=== PATIENT | male | born 1980 | race Caucasian/White ===

== ENCOUNTER 2017-04-08 22:09 | Emergency (ER) | payer OTHER ==
--- NOTE | 2017-04-08 23:25 | ED CLINICAL REPORT ---
Clinical Report - Physicians/Mid Levels [facility] [address] [place] [address] 04/08/2017 22:14 Patient: LISSA JACKSON Time Seen: 00:03 Apr 09 2017. Arrived- By private vehicle. Historian- patient. HISTORY OF PRESENT ILLNESS Chief Complaint: BACK PAIN. It is described as being in the area of the lower thoracic spine, upper lumbar spine, right side of the lower thoracic spine and right side of the upper lumbar spine and radiating to the left thigh. 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 Pain worsens with any movement or activity. and it is still present. No bowel dysfunction or sensory loss. Additional history - Patient reports lifting heavy objects at work about 5 days previously. Patient saw his primary care provider on the , was given muscle relaxers as well as anti-inflamotrin which have alleviated some pain, however pain worsening. Similar symptoms previously: None. REVIEW OF SYSTEMS The patient has had fever. No cough, difficulty breathing, vomiting, diarrhea or urinary frequency. No vaginal discharge. All systems otherwise negative, except as recorded above. SOCIAL HISTORY No alcohol use or drug use. ADDITIONAL NOTES The nursing notes have been reviewed. PHYSICAL EXAM Vital Signs: 04/08/2017 22:18 BP: 145/94. HR: 100. RR: 20. O2 saturation: 98%. Temp: 97.9 F. Pain level now: 8/10. Appearance: Alert. No acute distress. Neck: Neck nontender. Painless ROM. CVS: Normal heart rate and rhythm. Heart sounds normal. Respiratory: No respiratory distress. Breath sounds normal. Back: Soft tissue tenderness. Moderate muscle spasm present in the right mid and lower lumbar area. Neuro: Mood/affect normal. No sensory deficit. Straight leg raising: negative on the right and negative on the left. PROGRESS AND PROCEDURES Course of Care: There are no risks for spinal epidural abscess or hematoma as patient is without any risk factors such as IVDA or evidence of active infection, no midline tenderness to percussion. Hence I do not feel emergent imaging with an MRI is indicated. However I did discuss with the patient that if these symptoms develop, or if the pain does not resolve an MRI may need to be done outpatient, or in the ED if symptoms worsen acutely or new onset of the above mentioned symptoms develop. 04/08/2017 23:37 BP: 127/93. HR: 95. RR: 15. O2 saturation: 98%. Pain level now: 5/10. Patient is stable. Symptoms better. Patient/family counseled. Disposition: Discharged. Condition: good. CLINICAL IMPRESSION Muscle strain of the low back. INSTRUCTIONS Apply ice. Limit lifting. Prescription Medications: Hydrocodone/APAP 7.5mg / 325mg: take 1 orally every 6 hours as needed for pain. Dispense fifteen (15). No refill. Valium 5 mg: take 1 orally every 12 hours for 5 days as needed for muscle spasm. Dispense ten (10). No refill. Substitution is permissible. Follow-up: Follow up with your doctor in three days. Understanding of the discharge instructions verbalized by patient. (Electronically signed by Brunilda Woodward P.A.-C 04/09/2017 0:05)
--- NOTE | 2017-04-08 23:25 | ED CLINICAL REPORT ---
Clinical Report - Physicians/Mid Levels [facility] [address] [place] [address] 04/08/2017 22:14 Patient: LISSA JACKSON Time Seen: 00:03 Apr 09 2017. Arrived- By private vehicle. Historian- patient. HISTORY OF PRESENT ILLNESS Chief Complaint: BACK PAIN. It is described as being in the area of the lower thoracic spine, upper lumbar spine, right side of the lower thoracic spine and right side of the upper lumbar spine and radiating to the left thigh. 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 Pain worsens with any movement or activity. and it is still present. No bowel dysfunction or sensory loss. Additional history - Patient reports lifting heavy objects at work about 5 days previously. Patient saw his primary care provider on the , was given muscle relaxers as well as anti-inflamotrin which have alleviated some pain, however pain worsening. Similar symptoms previously: None. REVIEW OF SYSTEMS The patient has had fever. No cough, difficulty breathing, vomiting, diarrhea or urinary frequency. No vaginal discharge. All systems otherwise negative, except as recorded above. SOCIAL HISTORY No alcohol use or drug use. ADDITIONAL NOTES The nursing notes have been reviewed. PHYSICAL EXAM Vital Signs: 04/08/2017 22:18 BP: 145/94. HR: 100. RR: 20. O2 saturation: 98%. Temp: 97.9 F. Pain level now: 8/10. Appearance: Alert. No acute distress. Neck: Neck nontender. Painless ROM. CVS: Normal heart rate and rhythm. Heart sounds normal. Respiratory: No respiratory distress. Breath sounds normal. Back: Soft tissue tenderness. Moderate muscle spasm present in the right mid and lower lumbar area. Neuro: Mood/affect normal. No sensory deficit. Straight leg raising: negative on the right and negative on the left. PROGRESS AND PROCEDURES Course of Care: There are no risks for spinal epidural abscess or hematoma as patient is without any risk factors such as IVDA or evidence of active infection, no midline tenderness to percussion. Hence I do not feel emergent imaging with an MRI is indicated. However I did discuss with the patient that if these symptoms develop, or if the pain does not resolve an MRI may need to be done outpatient, or in the ED if symptoms worsen acutely or new onset of the above mentioned symptoms develop. 04/08/2017 23:37 BP: 127/93. HR: 95. RR: 15. O2 saturation: 98%. Pain level now: 5/10. Patient is stable. Symptoms better. Patient/family counseled. Disposition: Discharged. Condition: good. CLINICAL IMPRESSION Muscle strain of the low back. INSTRUCTIONS Apply ice. Limit lifting. Prescription Medications: Hydrocodone/APAP 7.5mg / 325mg: take 1 orally every 6 hours as needed for pain. Dispense fifteen (15). No refill. Valium 5 mg: take 1 orally every 12 hours for 5 days as needed for muscle spasm. Dispense ten (10). No refill. Substitution is permissible. Follow-up: Follow up with your doctor in three days. Understanding of the discharge instructions verbalized by patient. (Electronically signed by Brunilda Woodward P.A.-C 04/09/2017 0:05)
--- NOTE | 2017-04-08 23:26 | ED NURSING NOTES ---
Clinical Report - Nurses [facility] [address] [place] [address] 04/08/2017 22:14 Patient: LISSA JACKSON TRIAGE Triage time 22:21. Acuity: LEVEL 4. Chief Complaint: BACK PAIN. Alert. LOULOU COMA SCORE: [place] Coma Scale: 15- eyes open spontaneously (4); best verbal response- oriented x 4 (5); best motor response- obeys commands (6). --22:25 Heber Tinajero R.N. 22:18 04/08/17. BP: 145/94. HR: 100. RR: 20 (regular and unlabored). O2 saturation: 98% on room air. Temp: 97.9 F (oral). Pain level now: 07/06. --22:25 Heber Tinajero R.N. Weight: 104.3 kg. Height/Length: 69 inches Per Patient. BMI: 34. --22:23 Heber Tinajero R.N. Medications None. --22:18 Heber Tinajero R.N. Allergies Benadryl. --22:18 Heber Tinajero R.N. History Arrived by private vehicle. Historian: patient. Onset. (april 04, 2017). 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 SOCIAL HX: Never smoker. Occasional alcohol use. No drug use. ( denies HI/SI, states feeling safe in his relationships). ABUSE ASSESSMENT: No report of abuse. SELF HARM ASSESSMENT: A self harm assessment was performed. The patient answered "no" to the question "Do you have thoughts of harming or killing yourself?" and "Are you here because you tried to hurt yourself?". FALL RISK ASSESSMENT: Fall risk assessment completed. No fall risk identified. NUTRITIONAL RISK ASSESSMENT: The nutritional risk assessment revealed no deficiencies. FUNCTIONAL ASSESSMENT: Functional assessment: no impairments noted. LEARNING NEEDS ASSESSMENT: The learning needs assessment revealed no barriers. SKIN INTEGRITY ASSESSMENT: Skin integrity risk assessment completed. No skin integrity risk identified. --22:25 Heber Tinajero R.N. PROBLEMS: Asthma. Chiari malformation. --22:21 Heber Tinajero R.N. ADDITIONAL SURGERIES: chiari malformation - repair. Inguinal Hernia Repair. Shoulder Surgery. --22:21 Heber Tinajero R.N. Interventions ID band on patient. To treatment room. --22:25 Heber Tinajero R.N. PHYSICAL ASSESSMENT Ambulatory to room. GENERAL / NEURO / PSYCH: Alert. Oriented X 4. Appears in pain. RESPIRATORY: Chest nontender. Breath sounds within normal limits. CVS: Capillary refill less than 2 seconds. GI / : Abdomen soft and nontender. EXTREMITIES: Sensation intact in extremities. BACK: ( related to pain). Normal inspection of the neck and back. Limited ROM of the neck. Soft tissue tenderness. --22:25 Heber Tinajero R.N. NURSING PROGRESS NOTES Head of bed elevated. Reassurance given. Two patient identifiers checked. Call light placed in reach. Side rails up x 1. Bed placed in lowest position. Brakes of bed on. Patient ready for evaluation- chart flagged. Patient waiting for evaluation. --22:26 Heber Tinajero R.N. 23:04/08/2017 Valium (Diazepam) PO Tablets 5 mg given. Allergies verified, confirmed 5 rights and sedative warning given to the patient and patient's family. --23:05 Heber Tinajero R.N. 23:05 04/08/2017 Hydrocodone-APAP (Hydrocodone-Acetaminophen) PO 5/325 mg Tablets 1 tab given. Allergies verified, confirmed 5 rights and sedative warning given to the patient. --23:05 Heber Tinajero R.N. 23:34. The patient is calm and resting quietly. GENERAL / NEURO / PSYCH: Alert. Oriented X 4. RESPIRATORY: No respiratory distress. SKIN: Skin is warm and dry. Skin color within normal limits. --23:38 Ayden Sims R.N. DISPOSITION / DISCHARGE Departure time: 23:37. Condition at departure: stable. No learning barriers present. Discharge instructions provided and reviewed with the patient. Reviewed medication(s) side effects, precautions, dosing and course information. Prescription(s) given to the patient. Patient verbalized understanding. Written instructions provided in Welsh. The patient was discharged home and accompanied by detonator assembler. He left the Emergency Department ambulatory and via private vehicle. Integration Lead driving. FALL RISK ASSESSMENT: Fall risk assessment completed. No fall risk identified. --23:38 Ayden Sims R.N. 23:37 04/08/17. BP: 127/93. HR: 95. RR: 15. O2 saturation: 98% on room air. Pain level now: 04/05. --23:38 Ayden Sims R.N. Locked/Released at 04/08/2017 23:38 by Ayden Sims R.N.
--- NOTE | 2017-04-08 23:26 | ED ORDER SUMMARY ---
..... Patient: LISSA JACKSON OrderSheet [facility] VisitID: [id number] [address] [place] [address] 36y, M Registration Date/Time: 04/08/2017 ORDER SHEET Weight: 104.3 kg Allergies: Benadryl GENERAL ORDERS: MEDICATION ORDERS: Valium PO 5 mg (HIGH ALERT MEDICATION, NOW) (22:41 04/08/2017 Radha P.A.-C) (Ack 23:01 DDavis R.N.) (23:05 DDavis R.N.) Hydrocodone-APAP PO 5/325 mg (NOW, HIGH ALERT MEDICATION) (22:41 04/08/2017 Radha P.A.-C) (Ack 23:01 DDavis R.N.) (23:05 DDavis R.N.) IV FLUIDS: ORDER SHEET NOTES: [Electronically signed by Ayden Sims R.N. (23:38 04/08/2017)] [Electronically signed by Brunilda WoodwardA.-C (00:05 04/09/2017)] [Electronically locked/signed by Ayden Sims R.N. (23:38 04/08/2017)]
--- NOTE | 2017-04-08 23:26 | ED ORDER SUMMARY ---
..... Patient: LISSA JACKSON OrderSheet [facility] VisitID: [id number] [address] [place] [address] 36y, M Registration Date/Time: 04/08/2017 ORDER SHEET Weight: 104.3 kg Allergies: Benadryl GENERAL ORDERS: MEDICATION ORDERS: Valium PO 5 mg (HIGH ALERT MEDICATION, NOW) (22:41 04/08/2017 Radha P.A.-C) (Ack 23:01 DDavis R.N.) (23:05 DDavis R.N.) Hydrocodone-APAP PO 5/325 mg (NOW, HIGH ALERT MEDICATION) (22:41 04/08/2017 Radha P.A.-C) (Ack 23:01 DDavis R.N.) (23:05 DDavis R.N.) IV FLUIDS: ORDER SHEET NOTES: [Electronically signed by Ayden Sims R.N. (23:38 04/08/2017)] [Electronically signed by Brunilda WoodwardA.-C (00:05 04/09/2017)] [Electronically locked/signed by Ayden Sims R.N. (23:38 04/08/2017)]
--- NOTE | 2017-04-08 23:26 | ED NURSING NOTES ---
Clinical Report - Nurses [facility] [address] [place] [address] 04/08/2017 22:14 Patient: LISSA JACKSON TRIAGE Triage time 22:21. Acuity: LEVEL 4. Chief Complaint: BACK PAIN. Alert. LOULOU COMA SCORE: [place] Coma Scale: 15- eyes open spontaneously (4); best verbal response- oriented x 4 (5); best motor response- obeys commands (6). --22:25 Heber Tinajero R.N. 22:18 04/08/17. BP: 145/94. HR: 100. RR: 20 (regular and unlabored). O2 saturation: 98% on room air. Temp: 97.9 F (oral). Pain level now: 07/06. --22:25 Heber Tinajero R.N. Weight: 104.3 kg. Height/Length: 69 inches Per Patient. BMI: 34. --22:23 Heber Tinajero R.N. Medications None. --22:18 Heber Tinajero R.N. Allergies Benadryl. --22:18 Heber Tinajero R.N. History Arrived by private vehicle. Historian: patient. Onset. (april 04, 2017). 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 SOCIAL HX: Never smoker. Occasional alcohol use. No drug use. ( denies HI/SI, states feeling safe in his relationships). ABUSE ASSESSMENT: No report of abuse. SELF HARM ASSESSMENT: A self harm assessment was performed. The patient answered "no" to the question "Do you have thoughts of harming or killing yourself?" and "Are you here because you tried to hurt yourself?". FALL RISK ASSESSMENT: Fall risk assessment completed. No fall risk identified. NUTRITIONAL RISK ASSESSMENT: The nutritional risk assessment revealed no deficiencies. FUNCTIONAL ASSESSMENT: Functional assessment: no impairments noted. LEARNING NEEDS ASSESSMENT: The learning needs assessment revealed no barriers. SKIN INTEGRITY ASSESSMENT: Skin integrity risk assessment completed. No skin integrity risk identified. --22:25 Heber Tinajero R.N. PROBLEMS: Asthma. Chiari malformation. --22:21 Heber Tinajero R.N. ADDITIONAL SURGERIES: chiari malformation - repair. Inguinal Hernia Repair. Shoulder Surgery. --22:21 Heber Tinajero R.N. Interventions ID band on patient. To treatment room. --22:25 Heber Tinajero R.N. PHYSICAL ASSESSMENT Ambulatory to room. GENERAL / NEURO / PSYCH: Alert. Oriented X 4. Appears in pain. RESPIRATORY: Chest nontender. Breath sounds within normal limits. CVS: Capillary refill less than 2 seconds. GI / : Abdomen soft and nontender. EXTREMITIES: Sensation intact in extremities. BACK: ( related to pain). Normal inspection of the neck and back. Limited ROM of the neck. Soft tissue tenderness. --22:25 Heber Tinajero R.N. NURSING PROGRESS NOTES Head of bed elevated. Reassurance given. Two patient identifiers checked. Call light placed in reach. Side rails up x 1. Bed placed in lowest position. Brakes of bed on. Patient ready for evaluation- chart flagged. Patient waiting for evaluation. --22:26 Heber Tinajero R.N. 23:04/08/2017 Valium (Diazepam) PO Tablets 5 mg given. Allergies verified, confirmed 5 rights and sedative warning given to the patient and patient's family. --23:05 Heber Tinajero R.N. 23:05 04/08/2017 Hydrocodone-APAP (Hydrocodone-Acetaminophen) PO 5/325 mg Tablets 1 tab given. Allergies verified, confirmed 5 rights and sedative warning given to the patient. --23:05 Heber Tinajero R.N. 23:34. The patient is calm and resting quietly. GENERAL / NEURO / PSYCH: Alert. Oriented X 4. RESPIRATORY: No respiratory distress. SKIN: Skin is warm and dry. Skin color within normal limits. --23:38 Ayden Sims R.N. DISPOSITION / DISCHARGE Departure time: 23:37. Condition at departure: stable. No learning barriers present. Discharge instructions provided and reviewed with the patient. Reviewed medication(s) side effects, precautions, dosing and course information. Prescription(s) given to the patient. Patient verbalized understanding. Written instructions provided in Turkmen. The patient was discharged home and accompanied by regional service manager. He left the Emergency Department ambulatory and via private vehicle. Steam Frame Operator driving. FALL RISK ASSESSMENT: Fall risk assessment completed. No fall risk identified. --23:38 Ayden Sims R.N. 23:37 04/08/17. BP: 127/93. HR: 95. RR: 15. O2 saturation: 98% on room air. Pain level now: 04/05. --23:38 Ayden Sims R.N. Locked/Released at 04/08/2017 23:38 by Ayden Sims R.N.
--- NOTE | 2017-04-09 00:05 | ED MED RECONCILIATION SUMMARY ---
Patient: LISSA JACKSON Medication Reconciliation Report [facility] VisitID: [id number] [address] [place] [address] 36y, M Registration Date/Time: 04/08/2017 Weight: 104.3 kg Height/Length: 69 in. BMI: 34.0 ALLERGIES: Benadryl The patient's Home Medications are listed below: NONE. The source(s) of the original Home Medication information: Not obtained. The following Medications were given to the patient in the Emergency Department: Valium [PO] PO 5 mg, administered: 04/08/2017 11:05:00 PM Hydrocodone-APAP [PO] PO 1 tab, administered: 04/08/2017 11:05:00 PM The following Medications were prescribed to the patient: Hydrocodone/APAP 7.5mg / 325mg: take 1 orally every 6 hours as needed for pain. Dispense fifteen (15). No refill. -- Brunilda Woodward P.ADelvis-Joseph Valium 5 mg: take 1 orally every 12 hours for 5 days as needed for muscle spasm. Dispense ten (10). No refill. Substitution is permissible. -- Brunilda Woodward, P.ADelvis-C
--- NOTE | 2017-04-09 00:05 | ED MAR SUMMARY ---
..... Medication Administration Record [facility] [address] [place] [address] Patient: LISSA JACKSON Visit ID: [id number] 36y, M Weight: 104.3 kg Height/Length: 69 in BMI: 34 ALLERGIES: Benadryl Given 23:04/08/2017 Heber Tinajero R.N. Medication Administered: VALIUM [PO] (DIAZEPAM), Dose: 5 mg Tablets PO. Medication Ordered: Valium PO 5 mg (HIGH ALERT MEDICATION, NOW). Given 23:04/08/2017 Heber Tinajero R.N. Medication Administered: HYDROCODONE-APAP [PO] (HYDROCODONE-ACETAMINOPHEN), Dose: 1 tab 5/325 mg Tablets PO. Medication Ordered: Hydrocodone-APAP PO 5/325 mg (NOW, HIGH ALERT MEDICATION).
--- NOTE | 2017-04-09 00:05 | ED MAR SUMMARY ---
..... Medication Administration Record [facility] [address] [place] [address] Patient: LISSA JACKSON Visit ID: [id number] 36y, M Weight: 104.3 kg Height/Length: 69 in BMI: 34 ALLERGIES: Benadryl Given 23:04/08/2017 Heber Tinajero R.N. Medication Administered: VALIUM [PO] (DIAZEPAM), Dose: 5 mg Tablets PO. Medication Ordered: Valium PO 5 mg (HIGH ALERT MEDICATION, NOW). Given 23:04/08/2017 Heber Tinajero R.N. Medication Administered: HYDROCODONE-APAP [PO] (HYDROCODONE-ACETAMINOPHEN), Dose: 1 tab 5/325 mg Tablets PO. Medication Ordered: Hydrocodone-APAP PO 5/325 mg (NOW, HIGH ALERT MEDICATION).
--- NOTE | 2017-04-09 00:05 | ED DISCHARGE INSTRUCTIONS ---
Patient: LISSA JACKSON General Instructions [facility] VisitID: [id number] [place] [address] 36y, M Registration Date/Time: 04/08/2017 Muscle strain of the low back. INSTRUCTIONS Apply ice. Limit lifting. Prescription Medications: Hydrocodone/APAP 7.5mg / 325mg: take 1 orally every 6 hours as needed for pain. Dispense fifteen (15). No refill. Valium 5 mg: take 1 orally every 12 hours for 5 days as needed for muscle spasm. Dispense ten (10). No refill. Substitution is permissible. Follow-up: Follow up with your doctor in three days. Understanding of the discharge instructions verbalized by patient. ADDITIONAL INFORMATION Back Pain [Acute Or Chronic] Back pain is usually caused by an injury to the muscles or ligaments of the spine. Sometimes the disks that separate each bone in the spine may bulge and cause pain by pressing on a nearby nerve. Back pain may also appear after a sudden twisting/bending force (such as in a car accident), after a simple awkward movement, or lifting something heavy with poor body positioning. In either case, muscle spasm is often present and adds to the pain. Acute back pain usually gets better in one to two weeks. Back pain related to disk disease, arthritis in the spinal joints or spinal stenosis (narrowing of the spinal canal) can become chronic and last for months or years. Unless you had a physical injury (for example, a car accident or fall) X-rays are usually not ordered for the initial evaluation of back pain. If pain continues and does not respond to medical treatment, x-rays and other tests may be performed at a later time. Home Care: You may need to stay in bed the first few days. But, as soon as possible, begin sitting or walking to avoid problems with prolonged bed rest (muscle weakness, worsening back stiffness and pain, blood clots in the legs). When in bed, try to find a position of comfort. A firm mattress is best. Try lying flat on your back with pillows under your knees. You can also try lying on your side with your knees bent up towards your chest and a pillow between your knees. Avoid prolonged sitting. This puts more stress on the lower back than standing or walking. During the first two days after injury, apply an ICE PACK to the painful area for 20 minutes every 2-4 hours. This will reduce swelling and pain. HEAT (hot shower, hot bath or heating pad) works well for muscle spasm. You can start with ice, then switch to heat after two days. Some patients feel best alternating ice and heat treatments. Use the one method that feels the best to you. You may use acetaminophen (Tylenol) or ibuprofen (Motrin, Advil) to control pain, unless another pain medicine was prescribed. [NOTE: If you have chronic liver or kidney disease or ever had a stomach ulcer or GI bleeding, talk with your doctor before using these medicines.] Be aware of safe lifting methods and do not lift anything over 15 pounds until all the pain is gone. Follow Up with your doctor or this facility if your symptoms do not start to improve after one week. Physical therapy may be needed. [NOTE: If X-rays were taken, they will be reviewed by a radiologist. You will be notified of any new findings that may affect your care.] Get Prompt Medical Attention if any of the following occur: Pain becomes worse or spreads to your legs Weakness or numbness in one or both legs Loss of bowel or bladder control Numbness in the groin or genital area Hydrocodone Bitartrate, Acetaminophen Oral tablet What is this medicine? ACETAMINOPHEN; HYDROCODONE (a set a SUMEET vi fen; kerry droe KOE done) is a pain reliever. It is used to treat mild to moderate pain. How should I use this medicine? Take this medicine by mouth. Swallow it with a full glass of water. Follow the directions on the prescription label. If the medicine upsets your stomach, take the medicine with food or milk. Do not take more than you are told to take. Talk to your packing and final assembly supervisor regarding the use of this medicine in children. This medicine is not approved for use in children. What side effects may I notice from receiving this medicine? Side effects that you should report to your doctor or health resident care associate as soon as possible: allergic reactions like skin rash, itching or hives, swelling of the face, lips, or tongue breathing problems confusion feeling faint or lightheaded, falls stomach pain yellowing of the eyes or skin Side effects that usually do not require medical attention (report to your doctor or health resident care associate if they continue or are bothersome): nausea, vomiting stomach upset What may interact with this medicine? alcohol antihistamines isoniazid medicines for depression, anxiety, or psychotic disturbances medicines for sleep muscle relaxants naltrexone narcotic medicines (opiates) for pain phenobarbital ritonavir tramadol What if I miss a dose? If you miss a dose, take it as soon as you can. If it is almost time for your next dose, take only that dose. Do not take double or extra doses. Where should I keep my medicine? Keep out of the reach of children. This medicine can be abused. Keep your medicine in a safe place to protect it from theft. Do not share this medicine with anyone. Selling or giving away this medicine is dangerous and against the law. Store at room temperature between 15 and 30 degrees C (59 and 86 degrees F). Protect from light. Keep container tightly closed. Throw away any unused medicine after the expiration date. Discard unused medicine and used packaging carefully. Pets and children can be harmed if they find used or lost packages. What should I tell my health care provider before I take this medicine? They need to know if you have any of these conditions: brain tumor Crohn's disease, inflammatory bowel disease, or ulcerative colitis drink more than 3 alcohol-containing drinks per day drug abuse or addiction head injury heart or circulation problems kidney disease or problems going to the bathroom liver disease lung disease, asthma, or breathing problems an unusual or allergic reaction to acetaminophen, hydrocodone, other opioid analgesics, other medicines, foods, dyes, or preservatives or trying to get breast-feeding What should I watch for while using this medicine? Tell your doctor or health resident care associate if your pain does not go away, if it gets worse, or if you have new or a different type of pain. You may develop tolerance to the medicine. Tolerance means that you will need a higher dose of the medicine for pain relief. Tolerance is normal and is expected if you take the medicine for a long time. Do not suddenly stop taking your medicine because you may develop a severe reaction. Your body becomes used to the medicine. This does NOT mean you are addicted. Addiction is a behavior related to getting and using a drug for a non-medical reason. If you have pain, you have a medical reason to take pain medicine. Your doctor will tell you how much medicine to take. If your doctor wants you to stop the medicine, the dose will be slowly lowered over time to avoid any side effects. You may get drowsy or dizzy when you first start taking the medicine or change doses. Do not drive, use machinery, or do anything that may be dangerous until you know how the medicine affects you. Stand or sit up slowly. There are different types of narcotic medicines (opiates) for pain. If you take more than one type at the same time, you may have more side effects. Give your health care provider a list of all medicines you use. Your doctor will tell you how much medicine to take. Do not take more medicine than directed. Call emergency for help if you have problems breathing. The medicine will cause constipation. Try to have a bowel movement at least every 2 to 3 days. If you do not have a bowel movement for 3 days, call your doctor or health resident care associate. Too much acetaminophen can be very dangerous. Do not take Tylenol (acetaminophen) or medicines that contain acetaminophen with this medicine. Many non-prescription medicines contain acetaminophen. Always read the labels carefully. Diazepam Oral tablet What is this medicine? DIAZEPAM (dye AZ e almas) is a benzodiazepine. It is used to treat anxiety and nervousness. It also can help treat alcohol withdrawal, relax muscles, and treat certain types of seizures. How should I use this medicine? Take this medicine by mouth with a glass of water. Follow the directions on the prescription label. If this medicine upsets your stomach, take it with food or milk. Take your doses at regular intervals. Do not take your medicine more often than directed. If you have been taking this medicine regularly for some time, do not suddenly stop taking it. You must gradually reduce the dose or you may get severe side effects. Ask your doctor or health resident care associate for advice. Even after you stop taking this medicine it can still affect your body for several days. Talk to your packing and final assembly supervisor regarding the use of this medicine in children. Special care may be needed. What side effects may I notice from receiving this medicine? Side effects that you should report to your doctor or health resident care associate as soon as possible: allergic reactions like skin rash, itching or hives, swelling of the face, lips, or tongue angry, confused, depressed, other mood changes breathing problems feeling faint or lightheaded, falls muscle cramps problems with balance, talking, walking restlessness tremors trouble passing urine or change in the amount of urine unusually weak or tired Side effects that usually do not require medical attention (report to your doctor or health resident care associate if they continue or are bothersome): difficulty sleeping, nightmares dizziness, drowsiness, clumsiness, or unsteadiness, a hangover effect headache nausea, vomiting What may interact with this medicine? cimetidine grapefruit juice herbal or dietary supplements like kava kava, melatonin, Otho's Wort, or valerian medicines for anxiety or sleeping problems, like alprazolam, lorazepam, or triazolam medicines for depression, mental problems or psychiatric disturbances medicines for HIV infection or AIDS prescription pain medicines rifampin, rifapentine, or rifabutin some medicines for seizures like carbamazepine, phenobarbital, phenytoin, or primidone What if I miss a dose? If you miss a dose, take it as soon as you can. If it is almost time for your next dose, take only that dose. Do not take double or extra doses. Where should I keep my medicine? Keep out of the reach of children. This medicine can be abused. Keep your medicine in a safe place to protect it from theft. Do not share this medicine with anyone. Selling or giving away this medicine is dangerous and against the law. Store at room temperature between 15 and 30 degrees C (59 and 86 degrees F). Protect from light. Keep container tightly closed. Throw away any unused medicine after the expiration date. What should I tell my health care provider before I take this medicine? They need to know if you have any of these conditions an alcohol or drug abuse problem bipolar disorder, depression, psychosis or other mental health condition glaucoma kidney or liver disease lung or breathing disease myasthenia gravis Parkinson's disease seizures or a history of seizures suicidal thoughts an unusual or allergic reaction to diazepam, other benzodiazepines, foods, dyes, or preservatives or trying to get breast-feeding What should I watch for while using this medicine? Visit your doctor or health resident care associate for regular checks on your progress. Your body can become dependent on this medicine. Ask your doctor or health resident care associate if you still need to take it. You may get drowsy or dizzy. Do not drive, use machinery, or do anything that needs mental alertness until you know how this medicine affects you. To reduce the risk of dizzy and fainting spells, do not stand or sit up quickly, especially if you are an older patient. Alcohol may increase dizziness and drowsiness. Avoid alcoholic drinks. Do not treat yourself for coughs, colds or allergies without asking your doctor or health resident care associate for advice. Some ingredients can increase possible side effects. You have been given the following additional information: Back Pain (Acute Or Chronic) Hydrocodone Bitartrate, Acetaminophen Oral tablet Diazepam Oral tablet Limit lifting. (Electronically signed by Brunilda Woodawrd P.A.-C 04/09/2017 0:05)
--- NOTE | 2017-04-09 00:05 | ED MED RECONCILIATION SUMMARY ---
Patient: LISSA JACKSON Medication Reconciliation Report [facility] VisitID: [id number] [address] [place] [address] 36y, M Registration Date/Time: 04/08/2017 Weight: 104.3 kg Height/Length: 69 in. BMI: 34.0 ALLERGIES: Benadryl The patient's Home Medications are listed below: NONE. The source(s) of the original Home Medication information: Not obtained. The following Medications were given to the patient in the Emergency Department: Valium [PO] PO 5 mg, administered: 04/08/2017 11:05:00 PM Hydrocodone-APAP [PO] PO 1 tab, administered: 04/08/2017 11:05:00 PM The following Medications were prescribed to the patient: Hydrocodone/APAP 7.5mg / 325mg: take 1 orally every 6 hours as needed for pain. Dispense fifteen (15). No refill. -- Brunilda Woodward P.ADelvis-Joseph Valium 5 mg: take 1 orally every 12 hours for 5 days as needed for muscle spasm. Dispense ten (10). No refill. Substitution is permissible. -- Brunilda Woodward, P.ADelvis-C
--- NOTE | 2017-04-09 00:05 | ED DISCHARGE INSTRUCTIONS ---
Patient: LISSA JACKSON General Instructions [facility] VisitID: [id number] [place] [address] 36y, M Registration Date/Time: 04/08/2017 Muscle strain of the low back. INSTRUCTIONS Apply ice. Limit lifting. Prescription Medications: Hydrocodone/APAP 7.5mg / 325mg: take 1 orally every 6 hours as needed for pain. Dispense fifteen (15). No refill. Valium 5 mg: take 1 orally every 12 hours for 5 days as needed for muscle spasm. Dispense ten (10). No refill. Substitution is permissible. Follow-up: Follow up with your doctor in three days. Understanding of the discharge instructions verbalized by patient. ADDITIONAL INFORMATION Back Pain [Acute Or Chronic] Back pain is usually caused by an injury to the muscles or ligaments of the spine. Sometimes the disks that separate each bone in the spine may bulge and cause pain by pressing on a nearby nerve. Back pain may also appear after a sudden twisting/bending force (such as in a car accident), after a simple awkward movement, or lifting something heavy with poor body positioning. In either case, muscle spasm is often present and adds to the pain. Acute back pain usually gets better in one to two weeks. Back pain related to disk disease, arthritis in the spinal joints or spinal stenosis (narrowing of the spinal canal) can become chronic and last for months or years. Unless you had a physical injury (for example, a car accident or fall) X-rays are usually not ordered for the initial evaluation of back pain. If pain continues and does not respond to medical treatment, x-rays and other tests may be performed at a later time. Home Care: You may need to stay in bed the first few days. But, as soon as possible, begin sitting or walking to avoid problems with prolonged bed rest (muscle weakness, worsening back stiffness and pain, blood clots in the legs). When in bed, try to find a position of comfort. A firm mattress is best. Try lying flat on your back with pillows under your knees. You can also try lying on your side with your knees bent up towards your chest and a pillow between your knees. Avoid prolonged sitting. This puts more stress on the lower back than standing or walking. During the first two days after injury, apply an ICE PACK to the painful area for 20 minutes every 2-4 hours. This will reduce swelling and pain. HEAT (hot shower, hot bath or heating pad) works well for muscle spasm. You can start with ice, then switch to heat after two days. Some patients feel best alternating ice and heat treatments. Use the one method that feels the best to you. You may use acetaminophen (Tylenol) or ibuprofen (Motrin, Advil) to control pain, unless another pain medicine was prescribed. [NOTE: If you have chronic liver or kidney disease or ever had a stomach ulcer or GI bleeding, talk with your doctor before using these medicines.] Be aware of safe lifting methods and do not lift anything over 15 pounds until all the pain is gone. Follow Up with your doctor or this facility if your symptoms do not start to improve after one week. Physical therapy may be needed. [NOTE: If X-rays were taken, they will be reviewed by a radiologist. You will be notified of any new findings that may affect your care.] Get Prompt Medical Attention if any of the following occur: Pain becomes worse or spreads to your legs Weakness or numbness in one or both legs Loss of bowel or bladder control Numbness in the groin or genital area Hydrocodone Bitartrate, Acetaminophen Oral tablet What is this medicine? ACETAMINOPHEN; HYDROCODONE (a set a SUMEET vi fen; kerry droe KOE done) is a pain reliever. It is used to treat mild to moderate pain. How should I use this medicine? Take this medicine by mouth. Swallow it with a full glass of water. Follow the directions on the prescription label. If the medicine upsets your stomach, take the medicine with food or milk. Do not take more than you are told to take. Talk to your chronometer tester regarding the use of this medicine in children. This medicine is not approved for use in children. What side effects may I notice from receiving this medicine? Side effects that you should report to your doctor or health career technology teacher as soon as possible: allergic reactions like skin rash, itching or hives, swelling of the face, lips, or tongue breathing problems confusion feeling faint or lightheaded, falls stomach pain yellowing of the eyes or skin Side effects that usually do not require medical attention (report to your doctor or health career technology teacher if they continue or are bothersome): nausea, vomiting stomach upset What may interact with this medicine? alcohol antihistamines isoniazid medicines for depression, anxiety, or psychotic disturbances medicines for sleep muscle relaxants naltrexone narcotic medicines (opiates) for pain phenobarbital ritonavir tramadol What if I miss a dose? If you miss a dose, take it as soon as you can. If it is almost time for your next dose, take only that dose. Do not take double or extra doses. Where should I keep my medicine? Keep out of the reach of children. This medicine can be abused. Keep your medicine in a safe place to protect it from theft. Do not share this medicine with anyone. Selling or giving away this medicine is dangerous and against the law. Store at room temperature between 15 and 30 degrees C (59 and 86 degrees F). Protect from light. Keep container tightly closed. Throw away any unused medicine after the expiration date. Discard unused medicine and used packaging carefully. Pets and children can be harmed if they find used or lost packages. What should I tell my health care provider before I take this medicine? They need to know if you have any of these conditions: brain tumor Crohn's disease, inflammatory bowel disease, or ulcerative colitis drink more than 3 alcohol-containing drinks per day drug abuse or addiction head injury heart or circulation problems kidney disease or problems going to the bathroom liver disease lung disease, asthma, or breathing problems an unusual or allergic reaction to acetaminophen, hydrocodone, other opioid analgesics, other medicines, foods, dyes, or preservatives or trying to get breast-feeding What should I watch for while using this medicine? Tell your doctor or health career technology teacher if your pain does not go away, if it gets worse, or if you have new or a different type of pain. You may develop tolerance to the medicine. Tolerance means that you will need a higher dose of the medicine for pain relief. Tolerance is normal and is expected if you take the medicine for a long time. Do not suddenly stop taking your medicine because you may develop a severe reaction. Your body becomes used to the medicine. This does NOT mean you are addicted. Addiction is a behavior related to getting and using a drug for a non-medical reason. If you have pain, you have a medical reason to take pain medicine. Your doctor will tell you how much medicine to take. If your doctor wants you to stop the medicine, the dose will be slowly lowered over time to avoid any side effects. You may get drowsy or dizzy when you first start taking the medicine or change doses. Do not drive, use machinery, or do anything that may be dangerous until you know how the medicine affects you. Stand or sit up slowly. There are different types of narcotic medicines (opiates) for pain. If you take more than one type at the same time, you may have more side effects. Give your health care provider a list of all medicines you use. Your doctor will tell you how much medicine to take. Do not take more medicine than directed. Call emergency for help if you have problems breathing. The medicine will cause constipation. Try to have a bowel movement at least every 2 to 3 days. If you do not have a bowel movement for 3 days, call your doctor or health career technology teacher. Too much acetaminophen can be very dangerous. Do not take Tylenol (acetaminophen) or medicines that contain acetaminophen with this medicine. Many non-prescription medicines contain acetaminophen. Always read the labels carefully. Diazepam Oral tablet What is this medicine? DIAZEPAM (dye AZ e almas) is a benzodiazepine. It is used to treat anxiety and nervousness. It also can help treat alcohol withdrawal, relax muscles, and treat certain types of seizures. How should I use this medicine? Take this medicine by mouth with a glass of water. Follow the directions on the prescription label. If this medicine upsets your stomach, take it with food or milk. Take your doses at regular intervals. Do not take your medicine more often than directed. If you have been taking this medicine regularly for some time, do not suddenly stop taking it. You must gradually reduce the dose or you may get severe side effects. Ask your doctor or health career technology teacher for advice. Even after you stop taking this medicine it can still affect your body for several days. Talk to your chronometer tester regarding the use of this medicine in children. Special care may be needed. What side effects may I notice from receiving this medicine? Side effects that you should report to your doctor or health career technology teacher as soon as possible: allergic reactions like skin rash, itching or hives, swelling of the face, lips, or tongue angry, confused, depressed, other mood changes breathing problems feeling faint or lightheaded, falls muscle cramps problems with balance, talking, walking restlessness tremors trouble passing urine or change in the amount of urine unusually weak or tired Side effects that usually do not require medical attention (report to your doctor or health career technology teacher if they continue or are bothersome): difficulty sleeping, nightmares dizziness, drowsiness, clumsiness, or unsteadiness, a hangover effect headache nausea, vomiting What may interact with this medicine? cimetidine grapefruit juice herbal or dietary supplements like kava kava, melatonin, Mesic's Wort, or valerian medicines for anxiety or sleeping problems, like alprazolam, lorazepam, or triazolam medicines for depression, mental problems or psychiatric disturbances medicines for HIV infection or AIDS prescription pain medicines rifampin, rifapentine, or rifabutin some medicines for seizures like carbamazepine, phenobarbital, phenytoin, or primidone What if I miss a dose? If you miss a dose, take it as soon as you can. If it is almost time for your next dose, take only that dose. Do not take double or extra doses. Where should I keep my medicine? Keep out of the reach of children. This medicine can be abused. Keep your medicine in a safe place to protect it from theft. Do not share this medicine with anyone. Selling or giving away this medicine is dangerous and against the law. Store at room temperature between 15 and 30 degrees C (59 and 86 degrees F). Protect from light. Keep container tightly closed. Throw away any unused medicine after the expiration date. What should I tell my health care provider before I take this medicine? They need to know if you have any of these conditions an alcohol or drug abuse problem bipolar disorder, depression, psychosis or other mental health condition glaucoma kidney or liver disease lung or breathing disease myasthenia gravis Parkinson's disease seizures or a history of seizures suicidal thoughts an unusual or allergic reaction to diazepam, other benzodiazepines, foods, dyes, or preservatives or trying to get breast-feeding What should I watch for while using this medicine? Visit your doctor or health career technology teacher for regular checks on your progress. Your body can become dependent on this medicine. Ask your doctor or health career technology teacher if you still need to take it. You may get drowsy or dizzy. Do not drive, use machinery, or do anything that needs mental alertness until you know how this medicine affects you. To reduce the risk of dizzy and fainting spells, do not stand or sit up quickly, especially if you are an older patient. Alcohol may increase dizziness and drowsiness. Avoid alcoholic drinks. Do not treat yourself for coughs, colds or allergies without asking your doctor or health career technology teacher for advice. Some ingredients can increase possible side effects. You have been given the following additional information: Back Pain (Acute Or Chronic) Hydrocodone Bitartrate, Acetaminophen Oral tablet Diazepam Oral tablet Limit lifting. (Electronically signed by Brunilda Woodward P.A.-C 04/09/2017 0:05)
== END 2017-04-08 23:37 | disposition home or self-care (01) ==
LOC: ED SRH 22:09
DX: S39.012A Strain of muscle, fascia and tendon of lower back, initial encounter (principal); X50.0XXA Overexertion from strenuous movement or load, initial encounter; Y93.89 Activity, other specified; Y99.9 Unspecified external cause status; Y92.89 Other specified places as the place of occurrence of the external cause